=== PATIENT | female | born 1945 | race Caucasian/White ===

== ENCOUNTER 2016-10-17 06:06 | Day surgery (SDC) | payer MEDICARE, BC ==
[~2016-10-17 06:06] MED LIST: Brimonidine 0.2% Ophth Soln 5 ML Bottle ONE; Cataract Ophth Solution EYERT PRN; Hypromellose 2.5% Ophth Soln 15 ML Bottle EYERT PRN; Lactated Ringers 1,000 ML IV SCH; Lidocaine 1% 2 ML ONE; Lidocaine 3.5% Ophth Gel 1 ML Bottle ONE; Povidone-Iodine 5% Sterile Ophth Soln 30 ML Bottle ONE
[2016-10-17] MEDS: Proparacaine 0.5% Ophth Soln 15 ML Bottle EYERT PRN ×2 (06:28→08:07)
[2016-10-17] MEDS ORDERED: Midazolam 1 MG/ML 2 ML SDV ONE (07:44)
[2016-10-17] MEDS ORDERED: Vancomycin 500 MG SDV EYERT ONE (08:03)
[2016-10-17] MEDS ORDERED: Balanced Salt Solution Ophth Irrig 500 ML Bottle IOCULAR ONE (08:03)
[2016-10-17] MEDS ORDERED: Ciprofloxacin 0.3% Ophth Soln 2.5 ML Bottle EYERT ONE (08:04)
[2016-10-17] MEDS ORDERED: Chondroitin Sulfate/Hyaluronate Sodium Ophth Inj 0.5 ML Syringe IOCULAR ONE (08:04)
[2016-10-17] MEDS ORDERED: Lidocaine 1% PF 2 ML SDV INJECT ONE (08:05)
[2016-10-17 08:45] VITALS: BP 99/48
--- NOTE | 2016-10-17 12:19 | OR ---
PREOPERATIVE DIAGNOSIS: Senile nuclear cataract, right eye. POSTOPERATIVE DIAGNOSIS: Pseudophakia, right eye. PROCEDURE PERFORMED: Cataract extraction with intraocular lens implantation by phacoemulsification technique, right eye. ANESTHESIA: Topical anesthesia. ESTIMATED BLOOD LOSS: None. COMPLICATIONS: None. INDICATIONS: The patient is a 71-year-old female who was found to have a senile nuclear cataract, reducing her best corrected visual acuity. After explaining the risks, benefits, and alternatives of cataract surgery, an informed consent was obtained. DESCRIPTION OF PROCEDURE: After identifying the patient in the preoperative area, the patient was brought to the operating room. The patient was prepped and draped in a sterile fashion. A lid speculum was inserted into the eye. The microscope was brought into the field. Lidocaine gel was applied to the external surface of the eye. A paracentesis was made 3 clock hours away from the surgeon's operating hand. The anterior chamber was anesthetized with preservative-free Lidocaine. The anterior chamber was filled with Viscoat. A clear corneal incision was made at the 180-degree meridian with a 2.75 mm keratome. A continuous tear circular capsulorrhexis was performed. The nucleus was hydrodissected with balanced salt solution. The nucleus was sculpted and removed from the eye using a divide and conquer technique with the phacoemulsification handpiece. The residual viscoelastic was removed with the I/A handpiece. The anterior chamber and capsular bag were filled with Amvisc. An JEN lens, model PCB00 with a power of 27.0 Diopters and a serial number of [id number] was injected into the capsular bag. The lens was rotated completely into the capsular bag with a Sinskey hook. The residual viscoelastic was removed with the I/A handpiece. The anterior chamber was filled with balanced salt solution to a physiologic pressure. The corneal wound was closed with stromal hydration and seen to be water tight by Weck-Saira sponge testing. The patient received a drop of Zymar and Alphagan at the end of the case. There were no complications of this case. The patient will be followed postoperatively by Dr. Carolina Coon. SKA: 10/17/2016 08:56:03 MODL: 10/17/2016 12:11:06 /[id number]
== END 2016-10-17 09:00 | disposition home or self-care (01) ==
LOC: VM.SDS 06:06
PROVIDERS: ATTEND Ophthalmology
DX: H25.11 Age-related nuclear cataract, right eye (principal); Z96.1 Presence of intraocular lens
CPT/HCPCS: 00142; 66984; 82962; A9270; J2250; J3370; J7120; V2632

== ENCOUNTER 2016-11-14 08:10 | Day surgery (SDC) | payer MEDICARE, BC ==
[~2016-11-14 08:10] MED LIST changes: +Cataract Ophth Solution EYELF PRN; -Cataract Ophth Solution EYERT PRN; +Hypromellose 2.5% Ophth Soln 15 ML Bottle EYELF PRN; -Hypromellose 2.5% Ophth Soln 15 ML Bottle EYERT PRN; -Lactated Ringers 1,000 ML IV SCH; +Sodium Chloride 0.9% 10 ML Syringe FLUSH PRN
[2016-11-14] MEDS: Proparacaine 0.5% Ophth Soln 15 ML Bottle EYELF PRN ×2 (09:01→10:48)
[2016-11-14] MEDS ORDERED: Midazolam 1 MG/ML 2 ML SDV ONE (10:41)
[2016-11-14] MEDS ORDERED: Lidocaine 1% PF 2 ML SDV INJECT ONE (10:49)
[2016-11-14] MEDS ORDERED: Chondroitin Sulfate/Hyaluronate Sodium Ophth Inj 0.5 ML Syringe IOCULAR ONE (10:49)
[2016-11-14] MEDS ORDERED: Vancomycin 500 MG SDV EYELF ONE (10:50)
[2016-11-14] MEDS ORDERED: Ciprofloxacin 0.3% Ophth Soln 2.5 ML Bottle EYELF ONE (10:50)
[2016-11-14] MEDS ORDERED: Balanced Salt Solution Ophth Irrig 500 ML Bottle IOCULAR ONE (10:51)
[2016-11-14 11:31] VITALS: BP 139/65
--- NOTE | 2016-11-14 15:30 | OR ---
PREOPERATIVE DIAGNOSIS: Senile nuclear cataract, left eye. POSTOPERATIVE DIAGNOSIS: Pseudophakia, left eye. PROCEDURE PERFORMED: Cataract extraction with intraocular lens implantation by phacoemulsification technique, left eye. ANESTHESIA: Topical anesthesia. BLOOD LOSS: None. COMPLICATIONS: None. INDICATIONS: The patient is a 71-year-old female, who was found to have a senile nuclear cataract, reducing her best corrected visual acuity. After explaining the risks, benefits, and alternatives of cataract surgery an informed consent was obtained. DESCRIPTION OF PROCEDURE: After identifying the patient in the preoperative area, the patient was brought to the operating room. The patient was prepped and draped in a sterile fashion. A lid speculum was inserted into the eye. The microscope was brought into the field. Lidocaine gel was applied to the external surface of the eye. A paracentesis was made 3 clock hours away from the surgeon's operating hand. The anterior chamber was anesthetized with preservative-free Lidocaine. The anterior chamber was filled with Viscoat. A clear corneal incision was made at the 180-degree meridian with a 2.75mm keratome. A continuous tear circular capsulorrhexis was performed. The nucleus was hydrodissected with balanced salt solution. The nucleus was sculpted and removed from the eye using a divide and conquer technique with the phacoemulsification handpiece. The residual viscoelastic was removed with the I/A handpiece. The anterior chamber and capsular bag were filled with Amvisc. An JNE lens, model ZCB00 with a power of 26.5 Diopters and a serial number of [id number] was injected into the capsular bag. The lens was rotated completely into the capsular bag with a Sinskey hook. The residual viscoelastic was removed with the I/A handpiece. The anterior chamber was filled with balanced salt solution to a physiologic pressure. The corneal wound was closed with stromal hydration and seen to be water tight by Weck-Saira sponge testing. The patient received a drop of Zymar and Alphagan at the end of the case. There were no complications of this case. The patient will be followed postoperatively by Dr. Carolina Coon. SKA: 11/14/2016 11:10:35 MODL: 11/14/2016 15:20:21 /[id number]
== END 2016-11-14 11:35 | disposition home or self-care (01) ==
LOC: VM.SDS 08:10
PROVIDERS: ATTEND Ophthalmology
DX: Z96.1 Presence of intraocular lens (principal); H25.12 Age-related nuclear cataract, left eye; E11.9 Type 2 diabetes mellitus without complications; E78.5 Hyperlipidemia, unspecified; Z90.49 Acquired absence of other specified parts of digestive tract; Z98.890 Other specified postprocedural states; F41.8 Other specified anxiety disorders; Z96.653 Presence of artificial knee joint, bilateral; Z79.899 Other long term (current) drug therapy; Z79.82 Long term (current) use of aspirin
CPT/HCPCS: 00142; 66984; 82962; A9270; J2250; J3370; V2632

== ENCOUNTER 2022-10-22 08:56 | Day surgery (SDC) | payer MEDICARE, BC ==
[~2022-10-22 08:56] MED LIST changes: -Brimonidine 0.2% Ophth Soln 5 ML Bottle ONE; -Cataract Ophth Solution EYELF PRN; -Hypromellose 2.5% Ophth Soln 15 ML Bottle EYELF PRN; +Lactated Ringers 1,000 ML IV SCH; -Lidocaine 1% 2 ML ONE; -Lidocaine 3.5% Ophth Gel 1 ML Bottle ONE; -Povidone-Iodine 5% Sterile Ophth Soln 30 ML Bottle ONE; +Propofol 200 MG/20 ML SDV ONE; -Sodium Chloride 0.9% 10 ML Syringe FLUSH PRN; +fentaNYL 100 MCG/2 ML SDV ONE
[2022-10-22 11:09] VITALS: BP 106/52
[2022-10-22 11:52] VITALS: PULSE 72
== END 2022-10-22 12:47 | disposition home or self-care (01) ==
LOC: VM.SDS 08:56
PROVIDERS: ATTEND Surgery
DX: K57.30 Diverticulosis of large intestine without perforation or abscess without bleeding (principal); E78.5 Hyperlipidemia, unspecified; I10 Essential (primary) hypertension; M46.1 Sacroiliitis, not elsewhere classified; Z98.0 Intestinal bypass and anastomosis status; F41.8 Other specified anxiety disorders; Z90.49 Acquired absence of other specified parts of digestive tract; Z79.84 Long term (current) use of oral hypoglycemic drugs; Z79.899 Other long term (current) drug therapy; Z79.82 Long term (current) use of aspirin; E11.69 Type 2 diabetes mellitus with other specified complication; M54.12 Radiculopathy, cervical region; N30.01 Acute cystitis with hematuria
CPT/HCPCS: 00811; 82947; J2704; J3010; J7120